=== PATIENT | female | born 1965 | race Caucasian/White ===

== ENCOUNTER → 2018-12-30 | Outpatient (REF) | payer MEDICARE ==
[2018-12-30 12:45] LABS: ALBUMIN 3.9 GM/DL (3.2-5.2); ALT/SGPT 13 U/L (12-78); BILIRUBIN,TOTAL 0.6 MG/DL (0.2-1.0); BLOOD UREA NITROGEN 12 MG/DL (7-18); CALCIUM LEVEL 8.7 MG/DL (8.5-10.1); CARBON DIOXIDE LEVEL 29 MEQ/L (21-32); CHLORIDE LEVEL 107 MEQ/L (98-107); CHOLESTEROL LEVEL 161 MG/DL (<200); CREATININE FOR GFR 0.76 MG/DL (0.55-1.30); GLOMERULAR FILTRATION RATE > 60.0 (>51); GLUCOSE, FASTING 85 MG/DL (70-100); HDL CHOLESTEROL 70 MG/DL (>40); LDL CHOLESTEROL 78 MG/DL (<100); NON-HDL-C 91 MG/DL; POTASSIUM SERUM 4.3 MEQ/L (3.5-5.1); SODIUM LEVEL 140 MEQ/L (136-145); TOTAL PROTEIN 7.5 GM/DL (6.4-8.2); TRIGLYCERIDES LEVEL 64 MG/DL (<150)
[2018-12-30 13:16] LABS: HEPATITIS C VIRUS ABY INDEX < 0.0 INDEX (<0.8)
[2018-12-30 21:59] LABS: HEMOGLOBIN A1c 4.5 %
== END ==
LOC: M SFHCLERA 10:07
PROVIDERS: ATTEND Family Medicine
DX: I10 Essential (primary) hypertension (principal); Z11.59 Encounter for screening for other viral diseases
CPT/HCPCS: 80053; 80061; 83036; 84443; 86803; G0463

== ENCOUNTER → 2019-02-07 | Outpatient (CLI) | payer MEDICARE ==
--- NOTE | 2019-02-12 14:07 | REPMRS ---
Patient History The patient states she has not had a clinical breast exam in over a year. Patient is postmenopausal. Family history of lung cancer in father. 3D TOMOSYNTHESIS WAS PERFORMED. [facility] lifetime [facility] for [facility] 6.5%. Digital Mammo Screening Bilat: February 07, 2019 - Exam #: [id number] Bilateral CC and MLO view(s) were taken. Technologist: Kary Nino, Technologist Prior study comparison: 2013, digital woman screen mammo, performed [facility]. FINDINGS: The breast tissue is heterogeneously dense. This may lower the sensitivity of mammography. There has been no change in the appearance of the mammogram from the prior studies. There is a moderate amount of residual fibroglandular tissue which is fairly symmetric. There is no interval development of dominant mass, areas of architectural distortion, or clustered microcalcification typical of malignancy. Assessment: BI-RADS/ACR category 1 mammogram. Negative Mammogram. Recommendation Routine screening mammogram in 1 year (for women over age 40). This mammogram was interpreted with the aid of an FDA-approved computer-aided dectection system. Electronically Signed By: Alex Rosa MD 02/12/19 [id number]
== END ==
LOC: M RAD 09:45
PROVIDERS: ATTEND Family Medicine
DX: Z12.31 Encounter for screening mammogram for malignant neoplasm of breast (principal)

== ENCOUNTER → 2019-07-28 | Outpatient (REF) | payer MEDICARE ==
[2019-07-28 12:26] LABS: MALB URINE SIEMENS 16.1 MG/L; MAU/CREAT RATIO 13.4 MCG/MG (0.0-30.0)
[2019-07-28 12:32] LABS: ALBUMIN 3.8 GM/DL (3.2-5.2); BLOOD UREA NITROGEN 13 MG/DL (7-18); CALCIUM LEVEL 8.6 MG/DL (8.5-10.1); CARBON DIOXIDE LEVEL 29 MEQ/L (21-32); CHLORIDE LEVEL 106 MEQ/L (98-107); CREATININE FOR GFR 0.86 MG/DL (0.55-1.30); GLOMERULAR FILTRATION RATE > 60.0 (>51); GLUCOSE, FASTING 87 MG/DL (70-100); PHOSPHORUS LEVEL 3.2 MG/DL (2.5-4.9); POTASSIUM SERUM 4.2 MEQ/L (3.5-5.1); SODIUM LEVEL 142 MEQ/L (136-145)
== END ==
LOC: M SFHCLERA 08:21
PROVIDERS: ATTEND Family Medicine
DX: Q60.0 Renal agenesis, unilateral (principal); M81.0 Age-related osteoporosis without current pathological fracture
CPT/HCPCS: 80069; 82043; 82306; G0463

== ENCOUNTER → 2019-08-21 | Outpatient (CLI) | payer MEDICARE, MEDICAID ==
--- NOTE | 2019-08-21 18:01 | REP ---
Urinary tract sonography: History: Solitary kidney. Rule out hydronephrosis. No comparison study. Findings: Scanning through the right upper quadrant and right flank shows no evidence of a right kidney consistent with congenital absence. Left kidney measures 11.0 x 4.3 x 5.4 cm. There is anechoic fluid the central renal sinus echoes of the left kidney consistent with mild hydronephrosis, possibly in combination with small parapelvic cysts. No intrarenal calculus is observed by ultrasound. No mass or renal cortical cyst is appreciated. Scanning at the level of the urinary bladder is not productive as the urinary bladder is empty at the time of scanning. Impression: The right kidney was not seen consistent with congenital absence or perhaps ectopic pelvic kidney. The left kidney does not appear to show compensatory hypertrophy measuring 11.0 cm in craniocaudal length. There is a suggestion of mild left-sided hydronephrosis, possibly in combination with peripelvic cysts. Depending on the extent of prior imaging evaluation, nuclear renal scintigraphy and abdominal pelvic CT scanning may provide additional information. Electronically Signed by Dieudonne Farmer MD 08/21/2019 06:35 P
== END ==
LOC: M RAD 14:52
PROVIDERS: ATTEND Family Medicine
DX: Q60.0 Renal agenesis, unilateral (principal)

== ENCOUNTER 2019-09-20 10:57 | Emergency (ER) | payer MEDICARE, MEDICAID ==
[~2019-09-20] VITALS: Ht 149.9 cm; Wt 48.1 kg
[2019-09-20] MEDS ORDERED: FAMO40TA3 (11:04)
--- NOTE | 2019-09-20 11:33 | REP ---
Clinical: Trauma. Fall. Technique: AP and lateral views of the left forearm. Findings: Nondisplaced fractures of the distal radial and ulnar metaphyses noted with overlying soft tissue swelling. Impression: Nondisplaced fractures of the distal radial and ulnar metaphyses. Electronically Signed by Mp Grant MD 09/20/2019 11:24 A
[2019-09-20] MEDS ORDERED: ACETAMINOPH W/CODEINE #3 TAB UD PO ONE (12:30)
[2019-09-20] MEDS ORDERED: OXYC-517 PO (14:00)
[2019-09-20 14:01] VITALS: BP 136/63
== END 2019-09-20 14:16 | disposition home or self-care (01) ==
LOC: M ED 10:57
DX: S52.592A Other fractures of lower end of left radius, initial encounter for closed fracture (principal); S50.12XA Contusion of left forearm, initial encounter; W18.39XA Other fall on same level, initial encounter; Y92.018 Other place in single-family (private) house as the place of occurrence of the external cause; I10 Essential (primary) hypertension; J45.909 Unspecified asthma, uncomplicated; K21.9 Gastro-esophageal reflux disease without esophagitis; Z79.899 Other long term (current) drug therapy

== ENCOUNTER → 2019-11-28 | Outpatient (REF) | payer MEDICARE, MEDICAID ==
[~2019-11-28] MED LIST: FAMO40TA3; OXYC-517 PO
== END ==
LOC: M SFHCLERA 10:16
PROVIDERS: ATTEND Family Medicine
DX: E55.9 Vitamin D deficiency, unspecified (principal); Z79.899 Other long term (current) drug therapy

== ENCOUNTER 2020-01-14 21:39 | Inpatient (IN) | payer MEDICARE, MEDICAID ==
[~2020-01-14] VITALS: Ht 149.9 cm; Wt 48.9 kg
[~2020-01-14 21:39] MED LIST changes: -FAMO40TA3; +FAMO40TA3 PO
[2020-01-14 23:12] VITALS: BP 142/74
[2020-01-14] MEDS ORDERED: ACETAMINOPHEN TAB 650MG DOSE (2X325MG) PO PRN (23:30)
[2020-01-14] MEDS ORDERED: ONDANSETRON 4MG/2ML VIAL IV PRN (23:30)
[2020-01-14] MEDS ORDERED: MORPHINE 4 MG/ML 1ML VIAL/SYRINGE (J2270) IV PRN (23:30)
[2020-01-14] MEDS ORDERED: ALEN70TA74 PO (23:48)
[2020-01-14] MEDS ORDERED: VITA50005 PO (23:48)
[2020-01-14] MEDS ORDERED: ALBU8.5H PO (23:48)
[2020-01-15] VITALS (7 sets, daily range): BP systolic 109–130; BP diastolic 57–82
[2020-01-15 00:07] LABS: HEMATOCRIT 36.2 % (36.0-47.0); HEMOGLOBIN 11.8 g/dl (12.0-15.5); MEAN CORPUSCULAR HGB CONC 32.6 g/dl (32.0-36.5); MEAN CORPUSCULAR VOLUME 92.1 fl (80.0-96.0); PLATELET COUNT, AUTOMATED 209 10^3/uL (150-450); RED BLOOD COUNT 3.93 10^6/uL (4.00-5.40); WHITE BLOOD COUNT 14.1 10^3/uL (4.0-10.0)
[2020-01-15 00:12] LABS: INR 1.27; PROTHROMBIN TIME 15.6 SECONDS (11.8-14.0)
[2020-01-15] MEDS ORDERED: ALBUTEROL 90 MCG/ACT 8GM HFA INHALER INH PRN (00:15)
--- NOTE | 2020-01-15 00:21 | HPEPDOC ---
General Date of Admission Jan 14, 2020 at 23:25 Date of Service: Jan 15, 2020 Chief Complaint The patient is a 54-year-old female admitted with a reason for visit of Right Hip Fracture. Source: Patient Exam Limitations: No limitations Timing/Duration: Other (today) Severity: Other (, not applicable) Associated Symptoms: Mechanical fall, Other (. Fall) History of Present Illness This is a 54 years old white female while she was walking her dog and her daughter came across another dog and he suddenly pulled her,she sustained a mechanical fall and sustained a right hip fracture . Pt was seen at the [facility] and transferred from there to [facility] for surgical intervention. Patient has been accepted by Dr. Douglass for surgery. Home Medications Scheduled Alendronate Sodium (Alendronate Sodium) 70 Mg Tablet, 70 MG PO 1XWK, (Reported) SATURDAYS Ergocalciferol (Vitamin D2) (Vitamin D2) 50,000 Units Cap, 50,000 UNITS PO 1XWK, (Reported) FRIDAYS Famotidine (Famotidine) 40 Mg Tablet, 40 MG PO QHS, (Reported) Scheduled PRN Albuterol Sulfate (Albuterol Sulfate Hfa) 8.5 Gm Hfa.aer.ad, 2 PUFFS PO Q4H PRN for SOB/WHEEZING, (Reported) Allergies Coded Allergies: No Known Allergies (Verified Allergy, Unknown, 09/20/19) Past Medical History Medical History Hypertension, bone with 1 kidney, status post hernia repair, left eye surgery as child, status post hysterectomy secondary to endometriosis, intermittent asthma, osteoporosis, GERD, gallstones Surgical History As above Family History MSE revealed no significant history Social History * Smoker: Denies Alcohol: Denies Drugs: denies A-FIB/CHADSVASC A-FIB History Current/History of A-Fib/PAF?: No Review of Systems Constitutional: Denies: Chills, Fever, Malaise, Night Sweats, Weakness, Fatigue, Weight Loss, Lethargy, Other Eyes: Denies: Pain, Vision change, Conjunctivae inflammation, Eyelid inflammation, Redness, Other ENT: Denies: Head Aches, Ear Pain, Dysphagia, Sinus Congestion, Post Nasal Drip, Sore Throat, Epistaxis, Other Symptoms Skin: Denies: Rash, Lesions, Jaundice, Bruising, Itching, Dry, Breakdown, Nail Changes, Other Pulmonary: Denies: Dyspnea, Cough, Pleuritic Chest Pain, Other Symptoms Cardiovascular: Denies: Chest Pain, Palpitations, Orthopnea, Paroxysmal Noc. Dyspnea, Edema, Lt Headedness, Other Symptoms Gastrointestinal: Denies: Nausea, Vomiting, Abdominal Pain, Diarrhea, Constipation, Melena, Hematochezia, Other Symptoms Genitourinary: Denies: Dysuria, Frequency, Incontinence, Hematuria, Retention, Other Symptoms Hematologic: Denies: Bruising, Bleeding Excessively, Petecchia, Purpura, Enlarged Lymph Nodes, Other Hematologic Endocrine: Denies: Polydipsia, Polyphagia, Polyuria, Heat Intolerance, Cold Intolerance, Other Endocrine Sx Musculoskeletal: Reports: Other Symptoms (, right hip pain) Neurological: Denies: Weakness, Numbness, Incoordination, Change in speech, Confusion, Seizures, Other Symptoms Psych: Denies: Mood Normal, Anxiety, Depression, Memory Issues, Thoughts of Self Harm, Anger, Thoughts of Harming Other, Other Psych Physical Examination General Exam: Positive: Alert, Cooperative Eye Exam: Positive: PERRLA, Conjunctiva & lids normal ENT Exam: Positive: Atraumatic, Mucous membr. moist/pink Neck Exam: Positive: Supple, thyromegaly Chest Exam: Positive: Clear to auscultation, Normal air movement Heart Exam: Positive: Rate Normal Abdomen Exam: Positive: Normal bowel sounds, Soft Extremity Exam: Positive: Other (. Positive tenderness in right hip. This is pulses equal bilaterally) Skin Exam: Positive: Nl turgor and temperature Neuro Exam: Positive: Strength at 5/5 X4 ext, Cranial Nerves 3-12 NL Psych Exam: Positive: Mental status NL, Oriented x 3 Vital Signs Please refer to nursing notes Laboratory Data Labs 24H Laboratory Tests 2 01/14/20 23:47: Nucleated Red Blood Cells % (auto) 0.0 CBC/BMP Laboratory Tests 01/14/20 23:47 Problems (1) Hip fracture Status: Acute Problem Text: Status post right femoral neck fracture Scheduled for orthopedic surgery by Dr. Douglass in a.m. Patient EKG was normal sinus rhythm, no acute ST-T changes Laboratory work done, CBC, CMP and liver side hospital was within normal range Admit patient to MedSur floor Strict nothing by mouth IVF normal saline at 70 mL per hour Zofran 4 mg IV every 4 hours when necessary Morphine sulfate 4 mg IV every 4 hours when necessary No DVT prophylaxis indicated as patient is pre-op CBC, CMP, INR, chest x-ray and EKG also has been ordered here, will follow once available Patient is medically stable and cleared for surgery in a.m. Risk stratification: ASA class II (2) HTN (hypertension) Status: Chronic Problem Text: Hold all by mouth meds (3) GERD with apnea Status: Chronic Problem Text: Will change to Protonix 40 mg IV every 24 hours (4) Osteoporosis Status: Chronic Problem Text: Hold all by mouth meds Plan / VTE VTE Prophylaxis Ordered?: No VTE Exclusion Mechanical Proph: Other (. Preop) VTE Exclusion Pharmacological: Other (preoperative) MIGUELINA DILLON MD Jan 15, 2020 00:21
[2020-01-15 00:42] LABS: ALBUMIN 3.7 GM/DL (3.2-5.2); ALT/SGPT 99 U/L (12-78); BILIRUBIN,TOTAL 0.8 MG/DL (0.2-1.0); BLOOD UREA NITROGEN 14 MG/DL (7-18); CALCIUM LEVEL 7.9 MG/DL (8.5-10.1); CARBON DIOXIDE LEVEL 26 MEQ/L (21-32); CHLORIDE LEVEL 106 MEQ/L (98-107); CREATININE FOR GFR 0.82 MG/DL (0.55-1.30); GLOMERULAR FILTRATION RATE > 60.0 (>51); GLUCOSE, FASTING 126 MG/DL (70-100); POTASSIUM SERUM 3.7 MEQ/L (3.5-5.1); SODIUM LEVEL 140 MEQ/L (136-145); TOTAL PROTEIN 7.2 GM/DL (6.4-8.2)
[2020-01-15] MEDS: ONDANSETRON 4MG/2ML VIAL IV SCH ×3 (00:56→10:39)
[2020-01-15] MEDS: NS 1,000 ML IV SCH ×2 (00:57→17:47)
--- NOTE | 2020-01-15 01:12 | REPVR ---
PROCEDURE INFORMATION: Exam: XR Right Femur Exam date and time: 01/15/2020 12:58 AM Age: 54 years old Clinical indication: Injury or trauma; Fall; Initial encounter; Fracture, traumatic; Closed fracture; Femur; Right; Additional info: FX TECHNIQUE: Imaging protocol: XR Right femur. Views: 2 views. COMPARISON: No relevant prior studies available. FINDINGS: Bones/joints: There is an impacted right femoral neck fracture with slight foreshortening of the femur. One small displaced bone fragment inferior to the femoral neck. Femoral head remains in normal position in the acetabulum. No other fractures are seen. Soft tissues: Unremarkable. IMPRESSION: Impacted low right femoral neck fracture. Electronically signed by: Itz Ogden On 01/15/2020 01:11:53 AM
--- NOTE | 2020-01-15 01:13 | REPVR ---
PROCEDURE INFORMATION: Exam: XR Chest, 1 View Exam date and time: 01/15/2020 12:58 AM Age: 54 years old Clinical indication: Pre-operative exam; Respiratory screening exam; Additional info: Pre admit TECHNIQUE: Imaging protocol: XR of the chest Views: 1 view. COMPARISON: No relevant prior studies available. FINDINGS: Lungs: Unremarkable. No consolidation. Pleural space: Unremarkable. No pleural effusion. No pneumothorax. Heart/Mediastinum: Unremarkable. No cardiomegaly. Bones/joints: There are accessory bilateral cervical ribs. IMPRESSION: No acute findings. Electronically signed by: Itz Ogden On 01/15/2020 01:12:51 AM
[2020-01-15] MEDS ORDERED: ceFAZolin SOD 2 GM in IV 1 EA IV SCH (06:00)
[2020-01-15] MEDS ORDERED: ceFAZolin SOD 2 GM in IV 1 EA IV ONE (06:38)
--- NOTE | 2020-01-15 08:50 | ECGEPIP ---
[facility] Test Date: 2020-01-15 Pat Name: ИВАН DAMON Department: Room: [place] [address] Gender: Female Auto Bench Mechanic: SHALONDA : 1965 Requested By: MIGUELINA DILLON Order Number: [id number] Reading MD: Damon Mathis Measurements Intervals [place] Rate: 75 P: 51 WV: 170 QRS: 74 QRSD: 73 T: 42 QT: 368 QTc: 414 Interpretive Statements SINUS RHYTHM Low voltages with slow precordial R wave progression and minuscule inferoapical Q waves; body habitus versus pulmonary disease. Could not rule out prior infarction. No prior tracing for comparison. Clincal correlation advised Electronically Signed on 01-15-2020 8:50:21 EDT by Damon Mathis
[2020-01-15] MEDS ORDERED: ceFAZolin 2 GM/D5W 50 ML IV BAG (J0690 PER 500MG) As Ordered ONE (11:25)
[2020-01-15] MEDS ORDERED: KETAMINE HCL 200 MG/20 ML VIAL As Ordered ONE (12:51)
[2020-01-15] MEDS ORDERED: propofoL 200 MG/20 ML VIAL As Ordered ONE (12:51)
[2020-01-15] MEDS ORDERED: BUPIVACAINE/DEXTROSE 0.75% 2 ML AMP As Ordered ONE (12:51)
[2020-01-15] MEDS ORDERED: ePHEDrine SULFATE 25 MG/5 ML(5MG/ML) SYRINGE As Ordered ONE (12:51)
[2020-01-15] MEDS ORDERED: MIDAZOLAM INJ 2MG/2ML VIAL (J2250 PER 1MG) As Ordered ONE (12:51)
--- NOTE | 2020-01-15 12:55 | CR ---
DATE OF CONSULTATION: 01/15/2020 CHIEF COMPLAINT: Right hip pain. The patient states that she was walking her dog when another dog ran up suddenly and knocked her over. She immediately fell onto her right side and complained of severe pain to the right hip, inability to ambulate. The pain is made worse with any sort of mobilization and improved with pain medication and rest. Denies any fevers, chills, nausea, vomiting, or pain elsewhere. The patient has no known drug allergies. For home medications, she takes vitamin D2, famotidine, alendronate. PAST MEDICAL HISTORY: Hypertension, hernia repair, left eye surgery, status post hysterectomy, osteoporosis, gastroesophageal reflux disease (GERD), and gallstones. That also includes the surgical history. SOCIAL HISTORY: Denies any drugs, smoking, or illicit drug use, or alcohol. Complete 10-system review was conducted with pertinent positives and negatives in the history of present illness (HPI). All other systems negative. PHYSICAL EXAMINATION: The patient is awake, alert, and oriented. Well dressed, appropriate affect. Breathing unlabored on room air. Normocephalic, atraumatic. Bilateral upper extremities: No tenderness to palpation. Full active range of motion of the shoulders, elbows, and wrists. Skin is intact. Radial pulse 2+, regular rate. Positive anterior interosseous nerve (AIN) and posterior interosseous nerve (PIN) and ulnar motor nerve functions. Sensation intact to light touch, superficial sensory branches of the radial nerve, median nerve, and ulnar nerve. Left lower extremity: No tenderness to palpation. Negative logroll. Able to flex the knee and ankle. Skin intact. Posterior tibial pulse 2+, regular rate. Positive extensor hallucis longus (EHL), flexor hallucis longus (FHL), tibia, and gastroc motor functions. Sensation intact to light touch superficial peroneal, deep peroneal, sural, saphenous, and tibia distributions. Right lower extremity: Positive logroll. Tender to palpation of the groin and hip. No tenderness to palpation about the knee or distally. Skin is intact. Posterior tibial pulse 2+, regular rate. Positive EHL, FHL, tibia, and gastroc motor functions. Sensation intact to light touch superficial, peroneal, deep peroneal, sural, saphenous, and tibia distributions. LABORATORY WORK: Previous white count 14.1 and 11.8 and 36.2 for hemoglobin and hematocrit. IMAGING: Was reviewed. Pelvic x-ray and CT of the pelvis and femur x-ray demonstrating right femoral neck fracture displaced without significant osteoarthritic involvement. I discussed with the patient that, unfortunately, she suffered a right femoral neck fracture. These, unfortunately, do not heal. Given the fact that she has not had any prior hip pain and there is very little evidence of osteoarthritis on x-ray, we have decided to proceed with just hemiarthroplasty as opposed to total arthroplasty. We discussed the risks and benefits including but not limited to infection, damage to surrounding structures, incomplete relief, and dislocation. The patient wished to proceed. The patient is currently bedrest. Will work on pain control. Postoperatively, she will be weightbear as tolerated, observing hip precautions, with Surgical Care Improvement Project (SCIP) antibiotic prophylaxis and deep venous thrombosis (DVT) prophylaxis. Appreciate medicine for admission and preoperative clearance.
--- NOTE | 2020-01-15 13:34 | REP ---
REASON FOR EXAM: Right hip pain. There are no priors for comparison. There is a transverse fracture through the right femoral neck. There are bilateral hip degenerative changes with asymmetric joint space narrowing. There is no dislocation or subluxation of either hip joint. IMPRESSION: Right femoral neck fracture. Electronically Signed by Emilio Barajas DO 01/15/2020 02:33 P
--- NOTE | 2020-01-15 13:56 | REP ---
REASON: Right hip fracture. Bone and soft tissue window images performed. There is a slightly comminuted mildly impacted fracture of the right femoral neck. The hip joint is not dislocated or particularly subluxed. There are no additional fractures. IMPRESSION: Right hip fracture as described above. Electronically Signed by Emilio Barajas DO 01/15/2020 02:34 P
--- NOTE | 2020-01-15 14:12 | IPNPDOC ---
Text Note Date of Service The patient was seen on 01/15/20. NOTE Subjective: Patient is a 54-year-old female with a PMHx of HTN, Congenital solitary kidney, Asthma, Osteoporosis, GERD who presented to the hospital after she had fallen while walking her dog. Patient noted sudden onset of right hip pain and came to the emergency room for further evaluation. Imaging in ER was consistent with a right hip fracture and patient was admitted to hospitalist service for further evaluation and treatment. Orthopedic surgery was called on consultation. Patient was seen and examined at the bedside. Currently, patient reports that her pain is well-controlled. She denies any nausea, vomiting, chest pain, palpitations, shortness of breath, abdominal pain, constipation, diarrhea, or urinary discomfort. Objective: Vitals (See below) General: Lying in bed, appears comfortable, AAOx3 HEENT: NC, AT CVS: +S1S2 Lungs: Fair air entry b/l, no appreciable wheezing, rhonchi or crackles Abdomen: Soft, ND, NT Extremities: LE are without any edema, - Calf tenderness Assessment and plan: Right hip pain - likely 2/2 Impacted low right femoral neck fracture. - Patient presented to the emergency room after she had fallen on her R hip - XR hip 01/14: Impacted low right femoral neck fracture. - XR Pelvis 01/14: Right femoral neck fracture. - Pelvis CT 01/14: There is a slightly comminuted mildly impacted fracture of the right femoral neck. The hip joint is not dislocated or particularly subluxed. There are no additional fractures. - c/w symptomatic control with morphine / zofran - Orthopedic surgery was called on consultation; patient will be going to the OR today HTN - BP well controlled - Currently not on any medications as an outpatient Congenital solitary kidney - Cr appears to be at baseline - Avoid nephrotoxic medications Asthma - No evidence of exacerbation - CXR 01/14: No acute findings. - c/w inhaled therapy as ordered Osteoporosis - Patient is on Vitamin D supplementation and Bisphosphonates as an outpatient - Will resume on discharge GERD - Will resume Famotidine DVT prophylaxis - Will start TEDs/Sequentials - Anticoagulation post operatively will be managed by orthopedic surgery VS,Rosanne, I+O VS, Alirezabone, I+O Laboratory Tests 01/14/20 23:47 Vital Signs Date Time Temp Pulse Resp B/P (MAP) Pulse Ox O2 Delivery O2 Flow Rate FiO2 01/15/20 10:51 18 Room Air 01/15/20 10:41 98.0 01/15/20 06:00 75 111/57 (38) 96 I&O- Last 24 Hours up to 6 AM 01/15/20 06:00 Intake Total 350 ml Output Total 0 ml Balance 350 ml PHU WATTS MD Jan 15, 2020 14:12
[2020-01-15] MEDS ORDERED: HYDROMORPHONE HCL 0.5 MG/ 0.5 ML SYRINGE (J1170 PER 1) As Ordered ONE ×2 (14:25→14:46)
[2020-01-15] MEDS: HYDROMORPHONE HCL 0.5 MG/ 0.5 ML SYRINGE (J1170 PER 1) IV PRN ×3 (14:26→14:48)
[2020-01-15] MEDS ORDERED: oxyCODONE 5MG TAB PO PRN (14:30)
[2020-01-15] MEDS ORDERED: LR 1,000 ML IV SCH (14:30)
[2020-01-15] MEDS ORDERED: ONDANSETRON 4MG/2ML VIAL IV PRN (14:30)
[2020-01-15] MEDS ORDERED: fentaNYL 100 MCG/2 ML INJECTION (J3010) IV PRN (14:30)
--- NOTE | 2020-01-15 15:24 | REP ---
REASON: Status post right hip prosthesis. COMPARISON: Earlier today which showed a transverse right femoral neck fracture. The imaged portion of the prosthesis appears well seated and well approximated. The distal portion of the femoral shaft has not been included on the radiograph. Alignment appears near anatomical. There is expected postoperative soft tissue swelling. There is a skin staple line seen right lateral thigh region. IMPRESSION: Status post total right hip prosthetic device placement as described above. Electronically Signed by Emilio Barajas DO 01/15/2020 04:45 P
--- NOTE | 2020-01-15 16:00 | RO ---
DATE OF SERVICE: 01/15/2020 PREOPERATIVE DIAGNOSIS: Right femoral neck fracture, displaced. POSTOPERATIVE DIAGNOSIS: Right femoral neck fracture, displaced. PROCEDURE: Right hip hemiarthroplasty. SURGEON: Dr. Stefano Douglass MEDICAL AFFAIRS DIRECTOR: CARLIE Boothe, who was essential for reducing and dislocating the hip and retraction during diaz portions of procedure. ANESTHESIA: Spinal. BLOOD LOSS: 50 mL. COMPLICATIONS: None. PREOPERATIVE ANTIBIOTICS: 2 grams of Ancef. INDICATIONS: This is a pleasant 54-year-old female that had no preceding hip pain and very little signs of hip osteoarthritis who had suffered a fall and had a femoral neck fracture. We discussed the risks and benefits of surgical intervention, including. but not limited to, infection, damage to structures, incomplete relief, dislocation, and patient wished to proceed. DESCRIPTION OF PROCEDURE: Operative description: Patient brought back to the operating room (OR) in the supine position, underwent spinal anesthesia, at which point, the right leg was prepped and draped in the usual fashion with left side down. We then did a time-out confirming side, site, and surgery. Once in agreement, we made a longitudinal incision along the greater trochanter sharply dissected through subcutaneous tissue careful to control superficial bleeding. Split the iliotibial (IT) band, conducted a lateral approach hip lifting up the gluteus medius, a small portion of the vastus lateralis. We lifted up the anterior capsule as one sheet, at which point, we were able to place anterior and posterior acetabulum retractors. We used the corkscrew on power to engage the femoral head and disclose it. It was measured to be approximately a 42. We then irrigated the acetabulum and removed all bone fragments. There was very little if any osteoarthritis, so we were happy with our plan to go ahead with a hemiarthroplasty. At this point, we trialed a 42, sequenced to a 44, but we were happy with suction and fit of the 44. We then proceed to place the leg into the saddlebag and placed our anterior and trochanter retractors in place. We then sequentially reamed and broached up to a size 3. We then trialed a standard head, and I felt that hip was quite tight so then we proceed down to a -3 and felt the fit was much better. At which point, we irrigated the wound thoroughly, removed the broach, and irrigated the canal. We then inserted the [employer] [place] stem, size 3. At which point, we inserted a -3 collar and a 44 head and malleted it into place. Once it was nice and tight, we reduced the hip, checked our stability in both hip flexion, external rotation, and tightness. At this point, we were very happy with our reduction and our fit. At this point, we irrigated the wound thoroughly. We then closed the gluteus medius with #0 Vicryl, IT band with #0 Vicryl and V-Loc suture, and subcutaneous tissue with #2-0 Vicryl, mata for the skin, surgical dressing . Patient was awakened and taken to post anesthesia care unit (PACU) for in stable condition. POSTOPERATIVE PLAN: Patient will be weightbearing as tolerated. Lateral hip precaution. Surgical Care Improvement Project (SCIP) antiobiotic prophylaxis, and deep venous thrombosis (DVT) prophylaxis. She will be seen in the office in 2 weeks for repeat clinical check at that time. DAVI
[2020-01-15] MEDS ORDERED: PERCOCET 5MG/325MG TAB PO PRN (17:15)
[2020-01-15] MEDS ORDERED: RIVAROXABAN 10 MG TAB (XARELTO) PO SCH (18:00)
[2020-01-15] MEDS: ceFAZolin SOD 1 GM in D5W MINI-BAG PLUS 50 ML IV SCH (20:22)
[2020-01-15] MEDS: FAMOTIDINE 20 MG TAB PO SCH (20:22)
[2020-01-15] MEDS: PERCOCET 5MG/325MG TAB PO PRN (23:49)
[2020-01-16 02:00] VITALS: BP 118/59
[2020-01-16] MEDS: NS 1,000 ML IV SCH (04:06)
[2020-01-16] MEDS: ceFAZolin SOD 1 GM in D5W MINI-BAG PLUS 50 ML IV SCH ×2 (04:33→13:02)
[2020-01-16] MEDS: PERCOCET 5MG/325MG TAB PO PRN ×2 (04:33→13:46)
[2020-01-16 06:00] VITALS: BP 118/59
[2020-01-16 07:04] LABS: BASO % 0.2 % (0.0-1.0); EOS % 0.1 % (0.0-3.0); LYMPH # 0.8 10^3/uL (1.5-5.0); LYMPH % 7.3 % (24.0-44.0); MEAN CORPUSCULAR HEMOGLOBIN 30.2 pg (27.0-33.0); MEAN CORPUSCULAR HGB CONC 32.5 g/dl (32.0-36.5); MONO # 0.9 10^3/uL (0.0-0.8); MONO % 8.1 % (0.0-5.0); NEUTROPHILS # 9.5 10^3/uL (1.5-8.5); NEUTROPHILS % 83.7 % (36.0-66.0); PLATELET COUNT, AUTOMATED 137 10^3/uL (150-450); RED BLOOD COUNT 3.01 10^6/uL (4.00-5.40); WHITE BLOOD COUNT 11.4 10^3/uL (4.0-10.0)
[2020-01-16 07:23] LABS: HEMOGLOBIN 9.1 g/dl (12.0-15.5)
[2020-01-16 07:30] LABS: BLOOD UREA NITROGEN 8 MG/DL (7-18); CALCIUM LEVEL 7.2 MG/DL (8.5-10.1); CARBON DIOXIDE LEVEL 26 MEQ/L (21-32); CHLORIDE LEVEL 106 MEQ/L (98-107); CREATININE FOR GFR 0.83 MG/DL (0.55-1.30); GLOMERULAR FILTRATION RATE > 60.0 (>51); GLUCOSE, FASTING 124 MG/DL (70-100); MAGNESIUM LEVEL 1.6 MG/DL (1.8-2.4); POTASSIUM SERUM 3.7 MEQ/L (3.5-5.1); SODIUM LEVEL 139 MEQ/L (136-145)
[2020-01-16] MEDS ORDERED: MAG SULF 1GM/100ML (MAG RUN) 1 GM in IV 1 EA IV ONE (08:00)
[2020-01-16] MEDS: MOM 30ML SUSPENSION UDC PO SCH (08:05)
[2020-01-16] MEDS: MIRALAX *UNIT DOSE* 17GM PACKET PO SCH (08:06)
--- NOTE | 2020-01-16 11:24 | IPNPDOC ---
Text Note Date of Service The patient was seen on 01/16/20. NOTE Subjective: Patient is a 54-year-old female with a PMHx of HTN, Congenital solitary kidney, Asthma, Osteoporosis, GERD who presented to the hospital after she had fallen while walking her dog. Patient noted sudden onset of right hip pain and came to the emergency room for further evaluation. Imaging in ER was consistent with a right hip fracture and patient was admitted to hospitalist service for further evaluation and treatment. Orthopedic surgery was called on consultation. Patient was seen and examined at the bedside. Patient seen postoperatively. Currently she denies chest pain, shortness breath or palpitations. She reports that her hip pain has improved. She has been out of bed. Denies any urinary discomfort or abdominal pain. Objective: Vitals (See below) General: Sitting up in bed, appears comfortable, is oriented to person, place and time HEENT: NC, AT CVS: +S1S2 Lungs: There appears to be fair air entry bilaterally without evidence of rhonchi, crackles or wheezing Abdomen: Abdomen remains soft, without any distention or tenderness Extremities: No edema appreciated. Lower extremities, - Calf tenderness Assessment and plan: Right hip pain - likely 2/2 Impacted low right femoral neck fracture - s/p Right hip hemiarthroplasty (POD#1) - Patient presented to the ER after she had fallen on her R hip - In the postoperative state, patient reports her hip is doing better - XR hip /: Impacted low right femoral neck fracture. - XR Pelvis /4: Right femoral neck fracture. - Pelvis CT /4: There is a slightly comminuted mildly impacted fracture of the right femoral neck. The hip joint is not dislocated or particularly subluxed. There are no additional fractures. - c/w symptomatic control with morphine / zofran - c/w PT / OT - Orthopedic surgery on consultation; appreciate their input HTN - BP well controlled - Currently not on any medications as an outpatient Normocytic anemia - Hg has trended down from yesterday - No evidence of blood loss - Will continue to follow Hypomagnesemia - Supplemented via IV Congenital solitary kidney - Cr appears to be at baseline - Avoid nephrotoxic medications Asthma - No evidence of exacerbation - CXR /: No acute findings. - c/w inhaled therapy as ordered Osteoporosis - Patient is on Vitamin D supplementation and Bisphosphonates as an outpatient - Will resume on discharge GERD - c/w Famotidine DVT prophylaxis - c/w TEDs/Sequentials - Anticoagulation post operatively will be managed by orthopedic surgery; has been started on Xarelto VS,Fishbone, I+O VS, Fishbone, I+O Laboratory Tests 01/16/20 06:42 Vital Signs Date Time Temp Pulse Resp B/P (MAP) Pulse Ox O2 Delivery O2 Flow Rate FiO2 01/16/20 06:00 98.2 105 18 118/59 (78) 100 Room Air 01/16/20 04:59 1.0 I&O- Last 24 Hours up to 6 AM 01/16/20 06:00 Intake Total 1790 ml Output Total 150 ml Balance 1640 ml PHU WATTS MD Jan 16, 2020 11:24
[2020-01-16] MEDS: RIVAROXABAN 10 MG TAB (XARELTO) PO SCH (18:02)
[2020-01-16] MEDS: FAMOTIDINE 20 MG TAB PO SCH (20:54)
[2020-01-16 22:00] VITALS: BP 94/50
[2020-01-17 06:00] VITALS: BP 112/69
[2020-01-17 07:08] LABS: BASO % 0.2 % (0.0-1.0); EOS % 0.3 % (0.0-3.0); HEMOGLOBIN 8.7 g/dl (12.0-15.5); LYMPH % 10.4 % (24.0-44.0); MEAN CORPUSCULAR HEMOGLOBIN 29.9 pg (27.0-33.0); MEAN CORPUSCULAR HGB CONC 32.2 g/dl (32.0-36.5); MEAN CORPUSCULAR VOLUME 92.8 fl (80.0-96.0); MONO # 0.9 10^3/uL (0.0-0.8); MONO % 9.1 % (0.0-5.0); NEUTROPHILS # 7.7 10^3/uL (1.5-8.5); NEUTROPHILS % 79.4 % (36.0-66.0); PLATELET COUNT, AUTOMATED 144 10^3/uL (150-450); RED BLOOD COUNT 2.91 10^6/uL (4.00-5.40); WHITE BLOOD COUNT 9.7 10^3/uL (4.0-10.0)
[2020-01-17 07:32] LABS: BLOOD UREA NITROGEN 7 MG/DL (7-18); CALCIUM LEVEL 7.4 MG/DL (8.5-10.1); CARBON DIOXIDE LEVEL 29 MEQ/L (21-32); CHLORIDE LEVEL 104 MEQ/L (98-107); CREATININE FOR GFR 0.69 MG/DL (0.55-1.30); GLOMERULAR FILTRATION RATE > 60.0 (>51); GLUCOSE, FASTING 125 MG/DL (70-100); MAGNESIUM LEVEL 2.1 MG/DL (1.8-2.4); POTASSIUM SERUM 3.8 MEQ/L (3.5-5.1); SODIUM LEVEL 137 MEQ/L (136-145)
[2020-01-17] MEDS: MIRALAX *UNIT DOSE* 17GM PACKET PO SCH (08:09)
[2020-01-17] MEDS: PERCOCET 5MG/325MG TAB PO PRN (08:09)
[2020-01-17] MEDS: MOM 30ML SUSPENSION UDC PO SCH (08:09)
--- NOTE | 2020-01-17 09:21 | IPNPDOC ---
Text Note Date of Service The patient was seen on 01/17/20. NOTE Subjective: Patient was seen and examined at the bedside. Currently she denies chest pain, shortness breath or palpitations. She reports that her hip pain has improved. She has been out of bed. Complains of urinary frequency and urgency. Says has not had a bowel movement after surgery. Objective: Vitals (See below) General: laying in bed, appears comfortable, is oriented to person, place and time HEENT: NC, AT CVS: +S1S2, tachycardic, no rub, murmur or gallop Lungs: There appears to be fair air entry bilaterally without evidence of rhonchi, crackles or wheezing Abdomen: Abdomen remains soft, without any distention or tenderness Extremities: No edema appreciated. Lower extremities, - Calf tenderness MSK: surgical site at right hip with dressing with surrounding swelling. Assessment and plan: Patient is a 54-year-old female with a PMHx of HTN, Congenital solitary kidney, Asthma, Osteoporosis, GERD who presented to the hospital after she had fallen while walking her dog. Patient noted sudden onset of right hip pain and came to the emergency room for further evaluation. Imaging in ER was consistent with a right hip fracture and patient was admitted to hospitalist service for further evaluation and treatment. Impacted low right femoral neck fracture - s/p Right hip hemiarthroplasty (POD#2) - Patient presented to the ER after she had fallen on her R hip - In the postoperative state, patient reports her hip is doing better - XR hip /: Impacted low right femoral neck fracture. - XR Pelvis /4: Right femoral neck fracture. - Pelvis CT /: There is a slightly comminuted mildly impacted fracture of the right femoral neck. The hip joint is not dislocated or particularly subluxed. There are no additional fractures. - c/w symptomatic pain control , DVT prophylaxis as per ortho. Bowel regimen. - c/w PT / OT HTN - BP well controlled - Currently not on any medications as an outpatient Normocytic anemia - Hg has trended down from yesterday now hb at 8.7 will transfuse if below 7.5 - No evidence of blood loss - possibly due to fracture hematoma , surgical loss - fecal occult blood, iron studies, vit b12, folate. - Will continue to follow Hypomagnesemia -replaced. Congenital solitary kidney - Cr appears to be at baseline - Avoid nephrotoxic medications Asthma - No evidence of exacerbation - CXR 01/14: No acute findings. - c/w inhaled therapy as ordered Osteoporosis - Patient is on Vitamin D supplementation and Bisphosphonates as an outpatient - Will resume on discharge GERD - c/w Famotidine DVT prophylaxis - c/w TEDs/Sequentials - Anticoagulation started on Xarelto VS,Fishbone, I+O VS, Fishbone, I+O Laboratory Tests 01/17/20 06:52 Vital Signs Date Time Temp Pulse Resp B/P (MAP) Pulse Ox O2 Delivery O2 Flow Rate FiO2 01/17/20 08:09 16 01/17/20 06:00 98.8 105 112/69 (83) 93 Room Air 01/16/20 04:59 1.0 I&O- Last 24 Hours up to 6 AM 01/17/20 06:00 Intake Total 480 ml Output Total 0 ml Balance 480 ml WILLIAM FARFAN MD Jan 17, 2020 09:21
[2020-01-17 09:56] LABS: FERRITIN 127 NG/ML (8-252); IRON (FE) 10 UG/DL (50-170); PERCENT SATURATION 5.4 % (13.2-45.0); TOTAL IRON BINDING CAPACITY 184 UG/DL (250-450)
[2020-01-17 14:00] VITALS: BP 121/66
[2020-01-17] MEDS: RIVAROXABAN 10 MG TAB (XARELTO) PO SCH (17:40)
[2020-01-17] MEDS: FAMOTIDINE 20 MG TAB PO SCH (20:00)
[2020-01-17 22:00] VITALS: BP 121/63
[2020-01-18 06:00] VITALS: BP 119/62
[2020-01-18] MEDS ORDERED: PERC5TAB12 PO (06:13)
[2020-01-18] MEDS ORDERED: XARE10TA PO (06:13)
[2020-01-18 07:00] LABS: BASO % 0.4 % (0.0-1.0); EOS # 0.1 10^3/uL (0.0-0.5); EOS % 1.5 % (0.0-3.0); HEMOGLOBIN 9.3 g/dl (12.0-15.5); LYMPH # 1.3 10^3/uL (1.5-5.0); LYMPH % 15.6 % (24.0-44.0); MEAN CORPUSCULAR HEMOGLOBIN 30.7 pg (27.0-33.0); MEAN CORPUSCULAR HGB CONC 33.2 g/dl (32.0-36.5); MEAN CORPUSCULAR VOLUME 92.4 fl (80.0-96.0); MONO # 0.8 10^3/uL (0.0-0.8); MONO % 9.4 % (0.0-5.0); NEUTROPHILS # 6.1 10^3/uL (1.5-8.5); NEUTROPHILS % 72.4 % (36.0-66.0); PLATELET COUNT, AUTOMATED 181 10^3/uL (150-450); RED BLOOD COUNT 3.03 10^6/uL (4.00-5.40); WHITE BLOOD COUNT 8.4 10^3/uL (4.0-10.0)
[2020-01-18 07:23] LABS: BLOOD UREA NITROGEN 10 MG/DL (7-18); CALCIUM LEVEL 7.7 MG/DL (8.5-10.1); CARBON DIOXIDE LEVEL 29 MEQ/L (21-32); CHLORIDE LEVEL 101 MEQ/L (98-107); CREATININE FOR GFR 0.67 MG/DL (0.55-1.30); GLOMERULAR FILTRATION RATE > 60.0 (>51); GLUCOSE, FASTING 99 MG/DL (70-100); MAGNESIUM LEVEL 2.3 MG/DL (1.8-2.4); POTASSIUM SERUM 3.9 MEQ/L (3.5-5.1); SODIUM LEVEL 136 MEQ/L (136-145)
[2020-01-18] MEDS: MIRALAX *UNIT DOSE* 17GM PACKET PO SCH (09:00)
[2020-01-18] MEDS: MOM 30ML SUSPENSION UDC PO SCH (09:00)
--- NOTE | 2020-01-18 10:58 | DS.PDOC ---
Discharge Summary General Date of Admission Jan 14, 2020 at 23:25 Date of Discharge 01/18/20 Discharge Summary PROCEDURES PERFORMED DURING STAY: 01/15/20: Right hip hemiarthroplasty DISCHARGE DIAGNOSES: Right Femoral neck fracture SECONDARY DIAGNOSIS: HTN, Congenital solitary kidney, Asthma, Osteoporosis, GERD COMPLICATIONS/CHIEF COMPLAINT: Right Hip Fracture. HISTORY OF PRESENT ILLNESS: See History and physical HOSPITAL COURSE: Patient is a 54-year-old female with a PMHx of HTN, Congenital solitary kidney, Asthma, Osteoporosis, GERD who presented to the hospital after she had fallen while walking her dog. Patient noted sudden onset of right hip pain and came to the emergency room for further evaluation. Imaging in ER was consistent with a right hip fracture and patient was admitted to hospitalist service for further evaluation and treatment. Impacted low right femoral neck fracture s/p Right hip hemiarthroplasty Patient presented to the ER after she had fallen on her R hip XR hip 01/14: Impacted low right femoral neck fracture. XR Pelvis 01/14: Right femoral neck fracture. Pelvis CT 01/14: There is a slightly comminuted mildly impacted fracture of the right femoral neck. The hip joint is not dislocated or particularly subluxed. There are no additional fractures. c/w symptomatic pain control , DVT prophylaxis as per ortho. Bowel regimen. c/w PT / OT H/o HTN No hypertension noted in the hospital. Normocytic anemia Hg has trended down from yesterday now hb at 8.7 will transfuse if below 7.5 No evidence of blood loss possibly due to fracture hematoma , surgical loss fecal occult blood, vit b12, folate. No iron def. Follow up PMD. Hypomagnesemia replaced. Congenital solitary kidney Cr appears to be at baseline Asthma No evidence of exacerbation CXR 01/14: No acute findings. c/w inhaled therapy as ordered Osteoporosis Patient is on Vitamin D supplementation and Bisphosphonates as an outpatient resume on discharge GERD c/w Famotidine DVT prophylaxis c/w TEDs/Sequentials Anticoagulation started on Xarelto DISCHARGE MEDICATIONS: Please see below. ALLERGIES: Please see below. PHYSICAL EXAMINATION ON DISCHARGE: VITAL SIGNS: Please see below. General: laying in bed, appears comfortable, is oriented to person, place and time, thin and frail. HEENT: NC, AT CVS: +S1S2, tachycardic, no rub, murmur or gallop Lungs: There appears to be fair air entry bilaterally without evidence of rhonchi, crackles or wheezing Abdomen: Abdomen remains soft, without any distention or tenderness Extremities: No edema appreciated. Lower extremities, - Calf tenderness MSK: surgical site at right hip with dressing with surrounding swelling. LABORATORY DATA: Please see below. ACTIVITY: [As tolerated]. DIET: As tolerated DISCHARGE PLAN: Home with services DISCHARGE INSTRUCTIONS: Follow up with Ortho as directed Follow up PMD in 1 month DISCHARGE CONDITION: [Stable]. TIME SPENT ON DISCHARGE: 35 minutes. Vital Signs/I&Os Vital Signs Date Time Temp Pulse Resp B/P (MAP) Pulse Ox O2 Delivery O2 Flow Rate FiO2 01/18/20 06:00 98.9 101 18 119/62 (81) 95 Room Air 01/16/20 04:59 1.0 I&O- Last 24 Hours up to 6 AM 01/18/20 05:59 Intake Total 360 ml Output Total 100 ml Balance 260 ml Laboratory Data Labs 24H Laboratory Tests 2 01/18/20 06:45: Immature Granulocyte % (Auto) 0.7, Neutrophils (%) (Auto) 72.4H, Lymphocytes (%) (Auto) 15.6L, Monocytes (%) (Auto) 9.4H, Eosinophils (%) (Auto) 1.5, Basophils (%) (Auto) 0.4, Neutrophils # (Auto) 6.1, Lymphocytes # (Auto) 1.3L, Monocytes # (Auto) 0.8, Eosinophils # (Auto) 0.1, Basophils # (Auto) 0.0, Nucleated Red Blood Cells % (auto) 0.0, Anion Gap 6L, Glomerular Filtration Rate > 60.0, Calcium Level 7.7L, Magnesium Level 2.3 CBC/BMP Laboratory Tests 01/18/20 06:45 Discharge Medications Scheduled Alendronate Sodium (Alendronate Sodium) 70 Mg Tablet, 70 MG PO 1XWK, (Reported) SATURDAYS Ergocalciferol (Vitamin D2) (Vitamin D2) 50,000 Units Cap, 50,000 UNITS PO 1XWK, (Reported) FRIDAYS Famotidine (Famotidine) 40 Mg Tablet, 40 MG PO QHS, (Reported) Rivaroxaban (Xarelto) 10 Mg Tablet, 10 MG PO DAILY Scheduled PRN Albuterol Sulfate (Albuterol Sulfate Hfa) 8.5 Gm Hfa.aer.ad, 2 PUFFS PO Q4H PRN for SOB/WHEEZING, (Reported) Oxycodone HCl/Acetaminophen (Percocet 5-325 mg Tablet) 1 Each Tablet, 1 TAB PO Q4H PRN for PAIN Allergies Coded Allergies: No Known Allergies (Verified Allergy, Unknown, 09/20/19) WILLIAM FARFAN MD Jan 18, 2020 10:58
[2020-01-18] MEDS: PERCOCET 5MG/325MG TAB PO PRN (13:19)
== END 2020-01-18 13:51 | disposition home health service (06) | DRG 470 ==
LOC: M MSPAV 23:25 → M MS5PR 01-15 15:29
PROVIDERS: ADMIT Internal Medicine; ATTEND Internal Medicine Nephrology
PROC: 0SRR0JZ Replacement of Right Hip Joint, Femoral Surface with Synthetic Substitute, Open Approach (ICD-10-PCS; principal; 2020-01-15 12:00)
DX: S72.001A Fracture of unspecified part of neck of right femur, initial encounter for closed fracture (principal); Q60.0 Renal agenesis, unilateral; Y93.K1 Activity, walking an animal; W01.0XXA Fall on same level from slipping, tripping and stumbling without subsequent striking against object, initial encounter; Y92.89 Other specified places as the place of occurrence of the external cause; Y99.8 Other external cause status; D64.9 Anemia, unspecified; I10 Essential (primary) hypertension; E83.42 Hypomagnesemia; K21.9 Gastro-esophageal reflux disease without esophagitis; J45.20 Mild intermittent asthma, uncomplicated; Z79.899 Other long term (current) drug therapy; Z11.59 Encounter for screening for other viral diseases

== ENCOUNTER → 2020-03-11 | Outpatient (CLI) | payer MEDICARE, MEDICAID ==
[~2020-03-11] MED LIST changes: +ALBU8.5H PO; +ALEN70TA74 PO; +ISOVUE-370 76% 100ML VIAL As Ordered ONE; +PERC5TAB12 PO; +VITA50005 PO; +XARE10TA PO
--- NOTE | 2020-04-30 09:43 | REP ---
CT OF THE ABDOMEN AND PELVIS WITHOUT IV CONTRAST AND CT OF THE ABDOMEN WITH IV CONTRAST: Delay in reporting results from hospital computer malfunction from a malware attack. COMPARISON: CT of the pelvis dated 01/15/20. HISTORY: Congenital absence of the right kidney and mild hydronephrosis on the left. FINDINGS: On the comparison CT of the pelvis, there is a fracture of the right hip. On the current CT, there is a total right hip arthroplasty. There is no identifiable right kidney, compatible with the history of congenital absence of the right kidney. The right adrenal is unremarkable. The left kidney is identified and appears to be normal size, measuring 12.2 cm in craniocaudad length. There are multiple surgical clips along the anterior margin of the left renal upper pole. This could represent a partial nephrectomy or adrenalectomy or a combination. There is mild left hydronephrosis and hydroureter. After IV contrast, the pelvis is not included so the distal extent of the hydroureter cannot be assessed. A follow up CT urogram might be considered to evaluate the distal extent of the left ureter. On the images without IV contrast, the distal left ureter is obscured by loops of bowel. There are 2 tiny calcifications posterolateral to the urinary bladder, measuring approximately 2 mm in diameter each. They are unchanged from the comparison CT of the pelvis of 01/15/20, however the CT urogram might be able to correlate these calcifications with the left ureter more precisely. No bladder calculi are identified. The visualized lung bases are unremarkable. The hepatic parenchyma is unremarkable. There is a gallbladder calculus in the gallbladder fundus measuring 1.4 cm with rim calcification. The gallbladder is otherwise unremarkable. There is no biliary duct dilatation. The pancreatic duct in the head of the pancreas measures 5 mm. This is considered dilated by size criteria. The pancreatic duct in the body and tail of the pancreas does not appear to be dilated. There is no peripancreatic phlegmon to suggest pancreatitis. There is no focal pancreatic enlargement to suggest pancreatic mass by CT. The spleen is normal size and unremarkable. The abdominal aorta is unremarkable. There is no periaortic lymph node enlargement. There are scattered normal size periaortic nodes. The bowel and mesentery are unremarkable. PELVIS: There is no ascites. No adenopathy. No pelvic mass is identified, although portions of the pelvis are obscured by beam hardening from the left hip arthroplasty. The pelvic bowel loops are grossly unremarkable. There are no lytic, blastic or destructive skeletal changes. There is a tiny density in the left lateral cortex of the L3 vertebral body, likely a bone island. This vertebrae is not included in the comparison CT. IMPRESSION: Mild left hydronephrosis and left hydroureter. The distal left ureter cannot be adequately evaluated on this scan, as discussed above. Therefore, a follow up CT urogram is recommended for further evaluation of the distal left ureter. There are 2 tiny calcification in the pelvis approximately 2 mm in diameter each, one on the right and one on the left, unchanged from the comparison CT. One of these could possibly be a distal left ureteral calculus. There is a gallbladder calculus, as described. There is dilatation of the pancreatic duct in the pancreatic head, as described. No pancreatic mass is identified by CT. No evidence of pancreatitis is identified by CT. MTDD
== END ==
LOC: M RAD 11:30
PROVIDERS: ATTEND Internal Medicine Nephrology
DX: N13.2 Hydronephrosis with renal and ureteral calculous obstruction (principal); K80.20 Calculus of gallbladder without cholecystitis without obstruction; N18.2 Chronic kidney disease, stage 2 (mild); Q60.3 Renal hypoplasia, unilateral; N13.39 Other hydronephrosis
CPT/HCPCS: 74177; Q9967

== ENCOUNTER → 2020-06-02 | Outpatient (CLI) | payer MEDICARE, MEDICAID ==
[~2020-06-02] MED LIST changes: -ISOVUE-370 76% 100ML VIAL As Ordered ONE
[2020-06-02 16:42] LABS: BLOOD UREA NITROGEN 16 MG/DL (7-18); CALCIUM LEVEL 9.1 MG/DL (8.5-10.1); CARBON DIOXIDE LEVEL 31 MEQ/L (21-32); CHLORIDE LEVEL 105 MEQ/L (98-107); CREATININE FOR GFR 0.95 MG/DL (0.55-1.30); GLOMERULAR FILTRATION RATE > 60.0 (>51); GLUCOSE, FASTING 91 MG/DL (70-100); POTASSIUM SERUM 4.4 MEQ/L (3.5-5.1); SODIUM LEVEL 139 MEQ/L (136-145)
== END ==
LOC: M LAB 15:35
PROVIDERS: ATTEND Nurse Practitioner Women's Health
DX: N13.39 Other hydronephrosis (principal)

== ENCOUNTER → 2020-06-07 | Outpatient (CLI) | payer MEDICARE, MEDICAID ==
[~2020-06-07] MED LIST changes: +ISOVUE-370 76% 100ML VIAL As Ordered ONE
--- NOTE | 2020-06-08 08:08 | REP ---
INDICATION: HYDRONEPHOSIS W/ ABSENCE OF KIDNEY. COMPARISON: Comparison CT study March 11, 2020. TECHNIQUE: Contrast dose: 100 ML of Isovue [address] technique: Helical scanning is acquired and overlapping 1.5 mm and contiguous 3 mm axial images are reformatted. In addition, maximum intensity projection and multiplanar re-formation images are generated in sagittal and coronal imaging projections. Dual phase post-contrast imaging is acquired. CT urography protocol. 3D surface rendered images are generated. FINDINGS: Preliminary digital golf tournament consultant radiograph demonstrates a normal bowel gas pattern and a hemiarthroplasty in the right hip. There is minimal pleuroparenchymal fibrosis at the left lung base. Lung bases are otherwise clear. There is no evidence of pleural effusion. No focal liver lesion is seen. The spleen is normal size, homogeneous in texture. There is a row of linearly arranged irregular calcification versus suture material along the anterior capsule in the upper pole of the left kidney unchanged. The left adrenal gland is not visualized. Question post left adrenal resection. Right kidney is absent. There is mild hydronephrosis again seen in the left kidney and [id number] left-sided hydroureter is noted to the level of the pelvic inlet. No ureteral mass is seen. No ureteral calculus is observed. There is some spray artifact from the hip prosthesis but no bladder calculus is appreciated. Delayed scan images demonstrate contrast filling the collecting system and ureter on the left with no filling defect. No obstructive lesion is seen. This could reflect congenital megaureter. There is no evidence of renal mass or cyst. There are calcifications along the wall of the gallbladder suggesting stones in the gallbladder fundus or wall calcification. This is unchanged. The right adrenal is normal. No abnormality is visible in the pancreas. The pancreatic tail is somewhat fat replaced. The appendix is surgically absent. No retroperitoneal mass or adenopathy is seen. Small and large bowel loops are unremarkable. Patient is status post hysterectomy. No abdominal wall defect is observed. No bony destructive lesion is seen. On sagittal multiplanar reformations images, the left kidney measures 12.5 cm in craniocaudal length. IMPRESSION: Unilateral left kidney with mild hydronephrosis and hydroureter. No obstructive lesion seen. Question congenital megaureter. No evidence of left renal mass or calculus. There are calcifications along the anterior capsule of the upper pole of the left kidney question adrenal calcification, adrenal resection. Right kidney is absent. Cholelithiasis versus gallbladder wall calcification again seen. Status post hysterectomy and appendectomy. <Electronically signed by Kahlil Farmer > 06/08/20 4000
== END ==
LOC: M RAD 13:30
PROVIDERS: ATTEND Nurse Practitioner Women's Health
DX: K80.80 Other cholelithiasis without obstruction (principal); N13.4 Hydroureter; N13.39 Other hydronephrosis; Z90.5 Acquired absence of kidney
CPT/HCPCS: 74178; Q9967

== ENCOUNTER → 2020-10-04 | Outpatient (CLI) | payer MEDICARE, MEDICAID ==
[~2020-10-04] MED LIST changes: -ALEN70TA74 PO; +ALEN70TA82 PO; -ISOVUE-370 76% 100ML VIAL As Ordered ONE
--- NOTE | 2020-10-04 18:05 | REP ---
INDICATION: HYDRONEPHROSIS. Known solitary left kidney COMPARISON: Comparison sonography [address] study June 07, 2020.. TECHNIQUE: Urinary tract sonography. FINDINGS: Scanning at the level of the urinary bladder shows no abnormality. Left kidney renal cortical echogenicity pattern is normal in contours are smooth. Right kidney is absent.. There is no evidence of hydronephrosis, cyst, or mass in the left kidney.. . Left renal dimensions are 11.3 x 3.4 x 4.0 cm. Previously noted hydronephrosis has resolved. IMPRESSION: Solitary left kidney morphologically intact. No hydronephrosis seen.. <Electronically signed by Kahlil Farmer > 10/04/20 [id number]
== END ==
LOC: M RAD 14:55
PROVIDERS: ATTEND Urology
DX: N13.30 Unspecified hydronephrosis (principal)